=== PATIENT | female | born 1965 | race Caucasian/White ===

== ENCOUNTER → 2025-01-31 06:50 | Outpatient (REF) | payer BC, SELFPAY | LOC: HWWDC 06:50 | PROVIDERS: ATTENDING PHYSICIAN Nurse Practitioner Adult Health | DX: Z12.31 Encounter for screening mammogram for malignant neoplasm of breast (principal); E01.0 Iodine-deficiency related diffuse (endemic) goiter | CPT/HCPCS: 76536; 77063; 77067 ==

== ENCOUNTER 2025-07-10 19:49 | Emergency (ER) | payer BC, SELFPAY ==
[2025-07-10 20:00] VITALS: BP 131/91
--- NOTE | 2025-07-10 22:08 | ED.GENMED ---
History of Present Illness
General
Chief Complaint: Musculo-Skeletal Complaint
Source: patient
Exam Limitations: none
Time Seen by Provider: 07/10/25 21:57
History of Present Illness
History of Present Illness:
See MDM
Past History
Past History
ED Past Medical History: Other (diverticulitis)
ED Past Surgical History: None
Social History
Tobacco: Non-smoker
Personal:
Living: with family
Phy Exam
Physical Exam
Physical Exam:
See MDM
Course
Orders/Labs/Results
Orders:
Orders
07/10/25 20:05
Periph Venous Lwr Ext Left US [US Periph Venous LOWER Ext LT] Urgent
Comment:
Reason For Exam: left thigh pain
07/10/25 22:07
Knee Immobilizer Left-Treatmen ONCE
0.9% Sodium Chloride 1000 ml [Nss] 1,000 ml IV BOLUS
Morphine Sulfate 4 mg IV NOW STA
07/10/25 22:29
CPK [Creatine Phosphokinase] Urgent
Complete Blood Count/With Diff Urgent
Comprehensive Metabolic Panel Urgent
07/10/25 23:03
Oxycodone/Acetaminophen [Percocet 5/325] 1 tablet PO NOW STA
Abnormal Lab Results
07/10/25
22:29
RBC 4.15 L 10^6/uL
(4.20-5.40)
Hct 36.6 L %
(37.0-47.0)
Absolute Monos (auto) 0.8 H 10^3/uL
(0.1-0.6)
Lymphocytes % 18.1 L %
(20.5-51.1)
Monocytes % 9.4 H %
(1.7-9.3)
07/10/25 22:29
Vital Signs
Initial and Last Documented VS:
Initial Vital Signs
Temp Pulse Resp BP Pulse Ox
98.5 F 95 16 131/91 97
07/10/25 20:00 07/10/25 20:00 07/10/25 20:00 07/10/25 20:00 07/10/25 20:00
Last Documented Vital Signs
Temp Pulse Resp BP Pulse Ox
98.5 F 95 16 131/91 97
07/10/25 20:00 07/10/25 20:00 07/10/25 20:00 07/10/25 20:00 07/10/25 22:12
MDM/Problems Addressed
Differential Diagnosis Includes:
Note:
CHIEF COMPLAINT(S)
Severe pain in the thigh with an inability to bend the leg.
HISTORY OF PRESENT ILLNESS
The patient is a 60-year-old female who reports severe pain localized to her thigh, which started after a period of walking on [place] [address] over the past couple of weeks. She describes that the pain initially presented as a tightness and
progressed to a severe level over two nights ago, rendering her 'paralyzed with great pain.' The patient is unable to lift her leg due to the pain, making it very difficult for her to lie down or get into bed. The pain does not primarily affect her
hip but is described intensively in the lateral thigh area.
The patient attempted to seek care at urgent care, where it was suggested that the issue might involve the muscles, though she cannot recall the exact term used. She also expresses difficulty in putting weight on the affected leg due to pain but
notes she can stand. She rates the pain as 10 out of 10 and mentions that she has been sedentary for the last couple of days due to travel. The patient reports the pain is concentrated in the thigh and does not radiate past the knee, ruling out
typical sciatic pain.
The plan includes ruling out other conditions such as muscle breakdown (rhabdomyolysis) via blood work. Based on the examination, there is a suspicion of iliotibial (IT) band syndrome. Currently, she manages the intense pain with significant
discomfort, hampering her daily activities, including getting into a car or bed. Symptoms are worse when her left thigh is adducted
Pain is localized along the IT band
Although patient states she is unable to bend her leg, she is sitting in wheelchair with a bent leg
ADDITIONAL HISTORY OBTAINED FROM SOURCES OTHER THAN THE PATIENT
The patient was evaluated at urgent care, where staff mentioned a possible muscular problem.
SOCIAL DETERMINANTS AFFECTING HEALTH
The patient has been traveling abroad, which affected her physical activity levels and involved prolonged periods of immobility, contributing to her current condition.
ALLERGIES
The patient is allergic to penicillin.
PHYSICAL EXAM
General: Alert, no acute distress.
Skin: Warm, dry.
Head: Normocephalic, atraumatic
Neck: Appears supple, trachea midline.
Eyes, Ears, Nose, Mouth, and Throat: Moist mucous membranes
Cardiovascular: No signs of cyanosis
Respiratory: Respirations are non-labored.
Abdomen: Non-distended
Musculoskeletal: No deformities. Distal leg neurovasc intact. Pain localized along palpation of left IT band. Pain with left leg adduction
Neurological: No focal neurological deficit observed.
Psychiatric: Cooperative, appropriate mood and affect.
PLAN
- Administer an intravenous dose of morphine to help manage severe pain.
- Prescribe pain medication for outpatient management.
- Conduct blood tests to exclude rhabdomyolysis.
- Consider fitting a knee immobilizer to help ease movement restrictions and provide support.
- Recommend follow-up with an orthopedist or physical therapist for additional evaluation and management of suspected IT band syndrome.
- Advise rest and avoidance of activities that exacerbate symptoms.
DIFFERENTIAL DIAGNOSIS
The Differential Diagnosis includes, in no particular order and is not limited to:
1. Iliotibial Band Syndrome
2. Muscle Strain
3. Rhabdomyolysis
4. Deep Vein Thrombosis
5. Trochanteric Bursitis
6. Sciatica
7. Hip Osteoarthritis
8. Femoral Nerve Entrapment
9. Lumbar Radiculopathy
10. Bakers Cyst
SUMMARY OF ENCOUNTER
The patient, a 60-year-old female, presented with severe thigh pain after walking on cobblestones. Pain management was a primary focus given the extent of discomfort reported. Suspected iliotibial band syndrome, as suggested by prior examination,
led to consideration of this diagnosis. Blood work was done to rule out rhabdomyolysis, but no significant abnormalities were found. The patients pain management was improved, and her comfort level assessed positively before discharge.
DISPOSITION
Discharge
ASSESSMENT
Severe thigh pain likely due to iliotibial band syndrome, with no evidence of rhabdomyolysis.
EMERGENCY TREATMENTS ADMINISTERED
Administered intravenous morphine for severe pain management.
PLAN
- Prescribe pain medication for outpatient management.
- Fitting a knee immobilizer as needed.
- Follow-up with an orthopedist or physical therapist.
- Advisement on rest and avoidance of exacerbating activities.
PATIENT EDUCATION AND COUNSELING
Discussed the use of prescribed pain medication, stretching exercises, and importance of following up with a physical therapist. Advised follow-up with an orthopedist if symptoms persist or worsen.
FOLLOW-UP INSTRUCTIONS
Please follow-up with an orthopedist and physical therapy as recommended.
MEDICATION RECONCILIATION
Morphine was administered for pain relief during the visit. Prescription for pain management provided upon discharge.
MEDICAL DECISION MAKING
-Complexity of Data Reviewed: Chronic conditions affecting care including travel-induced sedentary behavior potentially contributing to iliotibial band syndrome. Differential diagnosis included: Iliotibial Band Syndrome, Muscle Strain, and others as
outlined.
-Data:
Category 1
Blood work reviewed with no significant abnormal findings, ruling out rhabdomyolysis.
Category 2
Clinical information obtained from the urgent care notes about the initial muscular problem suspicion.
-Risk:
Prescription medication was prescribed for pain management.
DIAGNOSIS
Iliotibial Band Syndrome (M76.3).
*Pulse Oximetry
SaO2: 97
Oxygen Mode of Delivery: Room air
Patient hypoxic: no
*Critical Care Note
Total Time (30-74mins, 75-104mins- exclusive of procedures): Not Applicable
ED Attending Note
-
Portions of this chart may have been created with voice recognition software.� Occasional wrong word or��sound alike� substitutions may have occurred due to the inherent limitations of voice recognition software.
Discharge Plan
Departure
Patient with high blood pressure during this ER visit?: No
Discharge Problem:
Iliotibial band syndrome
Instructions: Iliotibial Band Syndrome (DC)
Prescriptions:
New
oxycodone 5 mg tablet
5 mg PO Q8H PRN (Reason: Pain) Qty: 14 0RF
No Action
levofloxacin [Levaquin] 500 MG tablet
500 mg PO DAILY Qty: 7 0RF
metronidazole 500 MG tablet
500 mg PO TID Qty: 20 0RF
prednisone 10 MG tablet
10 mg PO .TAPER Qty: 30 0RF
Rx Instructions:
Take 40mg daily x3days, 30mg daily x3days,
20mg daily x3days, 10mg daily x3days.
hydrocodone-acetaminophen 1 TABLET tablet
1 tab PO Q4HPRN PRN (Reason: pain) Qty: 12 0RF
Referrals:
NONE,* [Family Provider, Internal Medicine]
Scotty Mae MD [Active, Orthopedics]
Activity Restrictions/Additional Instructions:
Please return for any worsening symptoms.
You may return at any time if you have further concerns.
Please follow up with your doctor at the first available appointment, preferably this week. Please discuss your symptoms and starting physical therapy.
Please make an appointment to see the orthopedist.
Thank you for choosing [facility].
Interventions
Interventions:
*Risk Screen - Suicide Last Done: 07/10/25 20:00
*General Assessment Last Done: 07/10/25 21:35
*Neglect/Abuse Screening Last Done: 07/10/25 20:00
ED-Musculoskeletal Assessment Last Done: 07/10/25 21:35
Discharge Date and Time
Print Language: SUDANESE
[2025-07-10] MEDS: NSS 1000 IV (22:31)
[2025-07-10] MEDS: MORPHINE SULFATE 4 MG IV (22:31)
[2025-07-10 22:50] LABS: Hematocrit 36.6 % (37.0-47.0); Hemoglobin 12.2 g/dL (12.0-16.0); Mean Corp Hgb Conc. 33.3 g/dL (33.0-37.0); Mean Corpuscular Volume 88.2 fL (81.0-99.0); Nucleated Red Blood Cells % 0 %; Platelet Count 212 10^3/uL (130-400); Red Cell Dist. Width 12.7 % (11.5-14.5)
[2025-07-10 23:03] LABS: ALT (SGPT) 20 U/L (0-35); AST (SGOT) 21 U/L (14-36); Albumin 4.7 g/dl (3.5-5.0); Alkaline Phosphatase 47 U/L (38-126); Blood Urea Nitrogen 5 mg/dl (7-17); Calcium 9.7 mg/dl (8.4-10.2); Carbon Dioxide 28 mmol/L (22-30); Chloride 102 mmol/L (98-107); Glucose 132 mg/dl (70-99); Potassium 3.7 mmol/L (3.5-5.1); Sodium 135 mmol/L (135-145); Total Protein 7.5 g/dl (6.3-8.2); eGFR > 60.00
[2025-07-10] MEDS: PERCOCET 5/325 1 TABLET PO (23:43)
== END 2025-07-11 00:11 | disposition home or self-care (01) ==
LOC: EMR 19:49
PROVIDERS: EMERGENCY PHYSICIAN Student in an Organized Health Care Education/Training Program
DX: M76.32 Iliotibial band syndrome, left leg (principal); M79.652 Pain in left thigh; Z88.0 Allergy status to penicillin
CPT/HCPCS: 99284; 96374; 96361; 80053; 82550; 85025; 93971

== ENCOUNTER 2025-09-24 22:23 | Emergency (ER) | payer BC, SELFPAY ==
[2025-09-24 22:30] VITALS: BP 142/96
[2025-09-24 23:35] VITALS: BMI 27.3
--- NOTE | 2025-09-24 23:35 | ED.SKININJ ---
HPI-Injury
General
Chief Complaint: Bite
Source: patient
Exam Limitations: none
Time Seen by Provider: 09/24/25 23:16
History of Present Illness-Injury
Initial Injury comments:
60yo [id number] female with no significant past medical history presenting for evaluation after cat bite about 1 hour ago. Patient feeds feral cats and one of the cats got into her home today. She tried to pull the cat's tail to get it
out of the house and the cat bit her in her right wrist. She cleaned the area immediately. No paresthesias. Unknown last Tdap.
Past History
Past History
ED Past Medical History: Other (diverticulitis)
ED Past Surgical History: None
Social History
Tobacco: Non-smoker
Personal:
Living: with family
Phy Exam
General Physical Exam
General Presentation: well appearing and no apparent distress
General age: appears stated age
General Skin: warm and dry
General Habitus: normal
General Mental: alert
ENT Exam
ENT Exam: normocephalic
Pulmonary Exam
Pulmonary Exam: no respiratory distress
Neurological Exam
Neurological Exam: alert
[place] Coma Scale
Eye Opening: Spontaneous
Verbal Response: Oriented
Motor Response: Obeys Commands
GCS Total Score: 15
Musculoskeletal Exam
Musculoskeletal Exam: other (R wrist: Two minor laceration noted to the radial aspect of the wrist with a puncture wound. No active bleeding. No bony tenderness and ROM of wrist intact. 2+ radial pulse.)
Skin Exam
Skin Exam: warm/dry
Psychiatric Exam
Psychiatric Exam: normal mood/affect
Course
Orders/Labs/Results
Orders:
Orders
09/24/25 23:34
Rabies Vaccine (Pcec)/Pf [Rabavert Rabies Vacc W-Diluent] 2.5 unit IM .ONCE ONE
Tetanus/Diphth/Acelpertussis [Adacel] 0.5 ml IM .ONCE ONE
09/25/25 00:00
Doxycycline [Vibramycin] 100 mg PO NOW STA
MetroNIDAZOLE [Flagyl] 500 mg PO NOW STA
09/25/25 00:47
Rabies Immune Globulin/Pf [HyperRAB] 1,440 unit IM NOW STA
09/25/25 01:30
Rabies Vaccine (Pcec)/Pf [Rabavert Rabies Vacc W-Diluent] 2.5 unit IM .ONCE ONE
Vital Signs
Initial and Last Documented VS:
Initial Vital Signs
Temp Pulse Resp Pulse Ox
97.9 F 83 20 98
09/24/25 22:25 09/24/25 22:25 09/24/25 22:25 09/24/25 22:25
Last Documented Vital Signs
Temp Pulse Resp BP Pulse Ox
97.9 F 80 18 135/90 97
09/24/25 22:25 09/25/25 01:32 09/25/25 01:32 09/25/25 01:32 09/25/25 01:32
MDM/Problems Addressed
Differential Diagnosis Includes:
60yoF here after being bitten by a feral cat in the R wrist. Minor lacerations and a puncture wound on exam. No indication for laceration repair. ROM intact and there is no bony tenderness. Patient initiated on a course of doxycycline and Flagyl for
infection prophylaxis (hx of PCN allergy). Tdap updated. Will initiate rabies vaccine series and cat is unable to be observed reliably. Rabies immunoglobulin injected into wounds and remainder given IM by nursing staff as well as rabies vaccination.
She was given a prescription for the remaining rabies vaccines and was advised to call the infusion center to scheduled this. Advised return to the ER with any signs of infection.
*Pulse Oximetry
SaO2: 98
Oxygen Mode of Delivery: Room air
Patient hypoxic: no
*Critical Care Note
Total Time (30-74mins, 75-104mins- exclusive of procedures): Not Applicable
ED Attending Note
-
Portions of this chart may have been created with voice recognition software.� Occasional wrong word or��sound alike� substitutions may have occurred due to the inherent limitations of voice recognition software.
Discharge Plan
Departure
Patient Disposition: Home (Routine Discharge)
Date of Disposition: 09/25/25
Time of Disposition: 01:28
Patient with high blood pressure during this ER visit?: Yes
Discharge Problem:
Cat bite of right wrist
Instructions: Animal Bites (DC)
Prescriptions:
New
doxycycline hyclate 100 mg capsule
100 mg PO BID Qty: 13 0RF
metronidazole 500 mg tablet
500 mg PO Q8H 7 Days Qty: 20 0RF
rabies vacc,human diploid (PF) 2.5 unit recon soln
2.5 unit IM ONCE Qty: 3 0RF
Rx Instructions:
Administer IM on 09/27/25, 10/01/25, and 10/08/24.
No Action
levofloxacin [Levaquin] 500 MG tablet
500 mg PO DAILY Qty: 7 0RF
metronidazole 500 MG tablet
500 mg PO TID Qty: 20 0RF
prednisone 10 MG tablet
10 mg PO .TAPER Qty: 30 0RF
Rx Instructions:
Take 40mg daily x3days, 30mg daily x3days,
20mg daily x3days, 10mg daily x3days.
hydrocodone-acetaminophen 1 TABLET tablet
1 tab PO Q4HPRN PRN (Reason: pain) Qty: 12 0RF
oxycodone 5 mg tablet
5 mg PO Q8H PRN (Reason: Pain) Qty: 14 0RF
Referrals:
NONE,* [Family Provider, Internal Medicine]
Stand Alone Forms: Rabies Vaccine Post Exp Dosing
Activity Restrictions/Additional Instructions:
Take antibiotics as prescribed. Please call the infusion center to schedule the remainder of your rabies vaccinations.
Please follow-up with your family doctor. Return to the ER with any worsening symptoms including red streaking, drainage, or fevers.
Interventions
Interventions:
*General Assessment Last Done: 09/24/25 22:25
*Neglect/Abuse Screening Last Done: 09/24/25 22:25
*ED COVID-19 Vaccine History Last Done: 09/24/25 23:35
*ED Influenza Vaccine History Last Done: 09/24/25 23:35
[facility] Fall Risk Assessment Tool Last Done: 09/24/25 23:35
*Risk Screen - Suicide (C-SSRS) Last Done: 09/24/25 22:25
*Nursing Disposition Last Done: 09/25/25 01:33
ED-Skin Assessment Last Done: 09/24/25 23:35
Discharge Date and Time
Discharge Date/Time: 09/25/25 01:33
Print Language: BULGARIAN
[2025-09-24] MEDS: ADACEL 0.5 ML IM (23:40)
[2025-09-25] MEDS: FLAGYL 500 MG PO (00:10)
[2025-09-25] MEDS: VIBRAMYCIN 100 MG PO (00:10)
[2025-09-25] MEDS: RABAVERT RABIES VACC W-DILUENT 2.5 UNIT IM (01:26)
[2025-09-25 01:32] VITALS: BP 135/90
== END 2025-09-25 01:33 | disposition home or self-care (01) ==
LOC: EMR 22:23
PROVIDERS: EMERGENCY PHYSICIAN Emergency Medicine
DX: S61.551A Open bite of right wrist, initial encounter (principal); W55.01XA Bitten by cat, initial encounter; Y92.009 Unspecified place in unspecified non-institutional (private) residence as the place of occurrence of the external cause; R03.0 Elevated blood-pressure reading, without diagnosis of hypertension; Z20.3 Contact with and (suspected) exposure to rabies; Z23 Encounter for immunization; Z29.14 Encounter for prophylactic rabies immune globulin
CPT/HCPCS: 99282; 90471; 96372; 90375; 90675; 90715

== ENCOUNTER 2025-09-26 21:10 | Observation (INO) | payer BC, SELFPAY ==
[2025-09-26 18:16] VITALS: BP 142/99
--- NOTE | 2025-09-26 19:59 | ED.GENMED ---
History of Present Illness
General
Chief Complaint: Skin Problem
Time Seen by Provider: 09/26/25 19:47
Nursing documentation reviewed up to this point in time: agreed with
History of Present Illness
History of Present Illness:
60-year-old female presents the ER for reevaluation of cat bite. Patient was bitten on the . She was seen here and initiated on doxycycline and Flagyl which she has been taking but noted worsening redness and swelling to her hand. Patient has
limited active range of motion of the right thumb due to pain and swelling. She denies fevers. She has not been taking any [id number] pain relievers for her discomforts.
Past History
Past History
ED Past Medical History: Other (diverticulitis)
ED Past Surgical History: None
Social History
Tobacco: Non-smoker
Personal:
Living: with family
Review of Systems
Review of Systems
Allergies reviewed?: Yes
Phy Exam
Physical Exam
Physical Exam:
Patient is awake, alert, appears in no acute distress, head is NCAT, PERRL, EOMI mucous membranes moist, conjunctiva pink, heart regular rate and rhythm without murmurs or ectopy, lungs are clear to auscultation without wheezes rales or rhonchi, no
JVD, right hand examination reveals significant swelling in the interdigital space between digits 1 and 2 with an overlying puncture wound in this area, there are 2 additional areas of injury on the thenar eminence, there is significant swelling and
increased warmth in comparison to the remainder of the hand, patient with limited active range of motion of the thumb, there is a lymphangitic streak up to the medial forearm to mid forearm, brisk cap refill present to the digits of the right hand,
GCS is 15
Course
Orders/Labs/Results
Orders:
Orders
09/26/25 19:56
CefTRIAXone [Rocephin] 1,000 mg IV NOW STA
MetroNIDAZOLE 500 MG/100 ML [Flagyl 500 mg] 100 ml IV NOW
09/26/25 20:00
Ketorolac [Toradol] 15 mg IV NOW STA
09/26/25 20:30
Blood Culture Q30M
GER Source: Blood/Venous
Specimen Description:
09/26/25 20:31
Complete Blood Count/With Diff Urgent
Blood Culture Q30M
GER Source: Blood/Venous
Specimen Description:
09/26/25 20:47
Basic Metabolic Panel Urgent
Abnormal Lab Results
09/26/25
20:31
Absolute Monos (auto) 0.9 H 10^3/uL
(0.1-0.6)
Monocytes % 15.1 H %
(1.7-9.3)
09/26/25 20:31
CBC wnl
Vital Signs
Initial and Last Documented VS:
Initial Vital Signs
Temp Pulse Resp BP Pulse Ox
98.0 F 84 18 142/99 97
09/26/25 18:16 09/26/25 18:16 09/26/25 18:16 09/26/25 18:16 09/26/25 18:16
Last Documented Vital Signs
Temp Pulse Resp BP Pulse Ox
98.0 F 84 18 142/99 97
09/26/25 18:16 09/26/25 18:16 09/26/25 18:16 09/26/25 18:16 09/26/25 20:00
MDM/Problems Addressed
Differential Diagnosis Includes:
Differential diagnosis to consider but not limited to deep space infection, failed outpatient treatment of cat bite along with other etiologies considered
*Pulse Oximetry
SaO2: 97
Oxygen Mode of Delivery: Room air
Patient hypoxic: no
*Critical Care Note
Total Time (30-74mins, 75-104mins- exclusive of procedures): Not Applicable
Update Note
Update Note:
Patient appears nontoxic but given worsening swelling and pain, I discussed with patient need for IV antibiotics and observation in the hospital. She agrees with plan. I assisted with removal of 2 tight rings on her fourth digit of the right hand
which were given to her significant other present at bedside. They agree with plan for admission. IV antibiotics, blood cultures, Toradol ordered. Will discuss with hospitalist.
2054: CBC reassuring. I reviewed pt presentation with the hospitalist who accepts pt for admission for further tx of failed outpt treatment of cellulitis related to cat bite
ED Attending Note
-
Portions of this chart may have been created with voice recognition software.� Occasional wrong word or��sound alike� substitutions may have occurred due to the inherent limitations of voice recognition software.
Discharge Plan
Departure
Patient Disposition: Admit
Date of Disposition: 09/26/25
Time of Disposition: 20:56
Presentation/result/management discussed w/ accepting MD/DO: Hospitalist
Discharge Problem:
Cat bite of right hand, Cellulitis
Prescriptions:
No Action
levofloxacin [Levaquin] 500 MG tablet
500 mg PO DAILY Qty: 7 0RF
metronidazole 500 MG tablet
500 mg PO TID Qty: 20 0RF
prednisone 10 MG tablet
10 mg PO .TAPER Qty: 30 0RF
Rx Instructions:
Take 40mg daily x3days, 30mg daily x3days,
20mg daily x3days, 10mg daily x3days.
hydrocodone-acetaminophen 1 TABLET tablet
1 tab PO Q4HPRN PRN (Reason: pain) Qty: 12 0RF
oxycodone 5 mg tablet
5 mg PO Q8H PRN (Reason: Pain) Qty: 14 0RF
doxycycline hyclate 100 mg capsule
100 mg PO BID Qty: 13 0RF
metronidazole 500 mg tablet
500 mg PO Q8H 7 Days Qty: 20 0RF
rabies vacc,human diploid (PF) 2.5 unit recon soln
2.5 unit IM ONCE Qty: 3 0RF
Rx Instructions:
Administer IM on 09/27/25, 10/01/25, and 10/08/24.
Referrals:
UNKNOWN - PT DOES,NOT KNOW [Unknown Provider]
Interventions
Interventions:
*Risk Screen - Suicide (C-SSRS) Last Done: 09/26/25 18:16
Discharge Date and Time
Print Language: BELARUSIAN
[2025-09-26 20:30] VITALS: BP 127/90
[2025-09-26] MEDS: TORADOL 15 MG IV (20:38)
[2025-09-26] MEDS: ROCEPHIN 1000 MG IV (20:38)
[2025-09-26 20:40] LABS: Hematocrit 40.0 % (37.0-47.0); Hemoglobin 13.6 g/dL (12.0-16.0); Mean Corp Hgb Conc. 34.0 g/dL (33.0-37.0); Mean Corpuscular Volume 87.0 fL (81.0-99.0); Nucleated Red Blood Cells % 0 %; Platelet Count 252 10^3/uL (130-400); Red Cell Dist. Width 13.6 % (11.5-14.5)
[2025-09-26] MEDS: FLAGYL 500 MG 100 IV (20:48)
--- NOTE | 2025-09-26 21:08 | HPS.HSE ---
Family Physician
-
Family Physician: * NONE
Chief Complaint
-
right hand cat bite
History of Present Illness
60-year-old female NO PMH presenting for cat bite. She was bitten on her right hand 2 days ago by a feral cat that she was feeding. She was seen here and started on doxycycline and Flagyl with worsening symptoms. She has limited range of motion
of the right thumb due to pain and swelling. No fevers or chills.
She drinks alcohol occasionally. Denies smoking.
Medical History
Past Medical History
Past Medical History: Reports None
Past Surgical History: Reports None
Social History
Tobacco: Non-smoker
Alcohol: Occasional
Drug: None
Family History
Family History: Not pertinent
Allergies / Home Medications
Allergies reflects when Allergies were last updated in Drive.
Home Medications with original date entered in Drive
Allergy/Medication List:
Allergies
Allergy/AdvReac Type Severity Reaction Status Date / Time
Penicillins Allergy Unknown Verified 09/26/25 18:16
Home Medications
levofloxacin 500 mg tablet (Levaquin) 500 mg PO DAILY #7 tabs 06/08/15
metronidazole 500 mg tablet 500 mg PO TID #20 tabs 06/08/15
hydrocodone 5 mg-acetaminophen 325 mg tablet 1 tab PO Q4HPRN PRN pain #12 tabs 09/21/21
prednisone 10 mg tablet 10 mg PO .TAPER #30 tabs 09/21/21
oxycodone 5 mg tablet 5 mg PO Q8H PRN Pain #14 tabs 07/10/25
doxycycline hyclate 100 mg capsule 100 mg PO BID #13 caps 09/25/25
metronidazole 500 mg tablet 500 mg PO Q8H 7 days #20 tabs 09/25/25
rabies vacc,human diploid (PF) 2.5 unit intramuscular solution 2.5 unit IM ONCE #3 ea 09/25/25
Review of Systems
-
History Source: Patient
A 12 point ROS was completed and negative except as noted: Yes
Constitutional: Reports No Symptoms
EENT: Reports No Symptoms
Respiratory: Reports No Symptoms
Cardiac: Reports No Symptoms
Abdomen/GI: Reports No Symptoms
: Reports No Symptoms
Musculoskeletal: Reports No Symptoms
Skin: Reports No Symptoms
Neurological: Reports No Symptoms
Endocrine: Reports No Symptoms
Hematologic/Lymphatic: Reports No Symptoms
Psych: Reports No Symptoms
Physical Exam
Vital Signs
Vital Signs
Temp Pulse Resp BP Pulse Ox
98.0 F 84 18 142/99 97
09/26/25 18:16 09/26/25 18:16 09/26/25 18:16 09/26/25 18:16 09/26/25 20:00
Physical Exam
General: Well Developed, Well Nourished and No Apparent Distress
HEENT: NormoCephalic, Moist mucous membranes and Atraumatic
Respiratory: Clear
Cardiac: S1/S2 and Regular Rhythm; No Murmur or Rub
GI: Soft, Non Tender, Non Distended and Normal Bowel Sounds; No Organomegaly
Rectal: Deferred by Provider
Musculoskeletal: No Clubbing, No Cyanosis and No Edema
Skin: No Rash
Neuro: Nonfocal/grossly intact
Laboratory Results
-
09/26/25 20:31
Data Reviewed
-
Lab Data: Labs Reviewed by me
Old Records: Reviewed
Impression/Plan
-
IMPRESSION:
PLAN:
# Right hand cat bite cellulitis
-Received Tdap and rabies immunoglobulin/vaccine 2 days ago
- Blood cultures pending
-Check hand x-ray
- Ceftriaxone/Flagyl
- Toradol
Full code
DVT prophylaxis�Lovenox
Regular diet
[2025-09-26 21:32] LABS: Blood Urea Nitrogen 13 mg/dl (7-17); Calcium 9.7 mg/dl (8.4-10.2); Carbon Dioxide 24 mmol/L (22-30); Chloride 104 mmol/L (98-107); Glucose 93 mg/dl (70-99); Potassium 4.3 mmol/L (3.5-5.1); Sodium 136 mmol/L (135-145); eGFR > 60.00
[2025-09-26 22:54] VITALS: BP 138/99; BMI 26.7
--- NOTE | 2025-09-26 23:48 | PTCARENOTE ---
Receive pt from ER. Pt alert oriented X3, calm, in no distress. Pt with no assist to bed. Pt oriented to the room, call [facility] within reach. Pt states that the pain in her right hand improved with Toradol. The pain is 5/10. VSS (T=98, HR=82, RR=18,
KT=884/99, SpO2=96% on RA). Will continue to monitor the pt.
[2025-09-27] MEDS: FLAGYL 500 MG 100 IV ×3 (03:02→20:15)
[2025-09-27 07:05] VITALS: BP 128/71
[2025-09-27] MEDS: TORADOL 10 MG IV ×2 (08:15→18:38)
[2025-09-27 09:22] LABS: Hematocrit 38.6 % (37.0-47.0); Hemoglobin 12.9 g/dL (12.0-16.0); Mean Corp Hgb Conc. 33.4 g/dL (33.0-37.0); Mean Corpuscular Volume 89.8 fL (81.0-99.0); Nucleated Red Blood Cells % 0 %; Platelet Count 232 10^3/uL (130-400); Red Cell Dist. Width 13.5 % (11.5-14.5)
[2025-09-27 09:37] LABS: ALT (SGPT) 20 U/L (0-35); AST (SGOT) 24 U/L (14-36); Albumin 4.1 g/dl (3.5-5.0); Alkaline Phosphatase 44 U/L (38-126); Blood Urea Nitrogen 10 mg/dl (7-17); Calcium 9.7 mg/dl (8.4-10.2); Carbon Dioxide 26 mmol/L (22-30); Chloride 105 mmol/L (98-107); Estimated Creatinine Clearance 88 ml/min; Glucose 86 mg/dl (70-99); Potassium 4.4 mmol/L (3.5-5.1); Sodium 136 mmol/L (135-145); Total Protein 6.7 g/dl (6.3-8.2); eGFR > 60.00
--- NOTE | 2025-09-27 14:22 | CM ---
Patient seen at bedside
IA completed
Lives with spouse 2 story home, 2 steps to enter, flight to bed/bath
PLOF: Independent
Denies DME
Denies VN/rehab
pcp: Dr. Zurita
Pharmacy: [facility], [address]
plan: home, no needs anticipated when stable
--- NOTE | 2025-09-27 14:28 | W.PN.HOSP.TC ---
Today's Communication/Plan
-
Cat bite, right hand cellulitis
ctx and flagyl
cxs
s/p rabies vac on 09/24
2nd dose rabies ordered for today
s/p tdap
hand xray without osseous involvement
ortho consult
Assessment / Plan
Assessment / Plan
Anticipated Discharge: 24 - 48 hours
Subjective/Interval History
-
Date of Service: September 27, 2025
Seen and examined. No new complaints. No acute overnight events.
Objective Data
-
Labs:
Laboratory Results
09/27/25
08:01
WBC 4.2 L
Hgb 12.9
Hct 38.6
Plt Count 232
Sodium 136
Potassium 4.4
Chloride 105
Carbon Dioxide 26
BUN 10
Creatinine 0.6
Glucose 86
Calcium 9.7
Total Bilirubin 0.6
AST 24
ALT 20
Alkaline Phosphatase 44
Vital Signs:
Vital Signs
Temp Pulse Resp BP Pulse Ox
97.9 F 69 18 128/71 97
09/27/25 07:05 09/27/25 07:05 09/27/25 07:05 09/27/25 07:05 09/27/25 08:10
I&O
09/26/25 09/27/25 09/28/25
06:59 06:59 06:59
Intake Total 580 / 580
Balance 580 / 580
Physical Exam
-
General: Well Developed, Well Nourished, No Apparent Distress and Comfortable
HEENT: Normocephalic and Atraumatic
Respiratory: Clear to Auscultation
Cardiac: Regular Rhythm and S1/S2
GI: Soft, Nontender and Nondistended
Musculoskeletal: No Clubbing, No Cyanosis, No Edema and Other (right hand with three puncture proctor, difficulty making a fist, difficulty thumb to index, erythema, no purulence, swelling)
Neuro: Awake and AO x 3
Psych: Calm
[2025-09-27 15:25] VITALS: BP 125/78
[2025-09-27] MEDS: RABAVERT RABIES VACC W-DILUENT 2.5 UNIT IM (15:36)
[2025-09-27] MEDS: LOVENOX 40 MG SC (17:20)
[2025-09-27] MEDS: ROCEPHIN 1000 MG IV (20:16)
[2025-09-27 23:34] VITALS: BP 127/86
[2025-09-27 23:36] LABS: C-Reactive Protein 22.20 mg/L (0.0-10.00)
[2025-09-28] MEDS: FLAGYL 500 MG 100 IV ×3 (04:08→20:38)
[2025-09-28 07:14] VITALS: BP 129/86
--- NOTE | 2025-09-28 12:34 | CON.ORTHO ---
Consultation
-
Date/Time Consultation Performed: 09/28/2025 12 pm
Consultation - Orthopedics
History
HPI: 60-year-old female presented to the emergency department complaints of right hand pain swelling redness. As she been previously bitten by a cat. She failed outpatient oral antibiotics had worsening symptoms and was ultimately admitted to the
medical service. Orthopedics was consulted for further evaluation and treatment. This morning patient reports quite substantial improvement in her symptoms. She reports that range of motion has improved substantially. She reports that redness
has improved substantially. She is really not complaining of significant pain this morning ports the pain is also improved quite a bit.
Allergies / Home Medications
Past medical history: None documented
Past surgical history: None documented
Social history: Non-smoker, lives with family
Family history: Not pertinent
Allergy/AdvReac Type Severity Reaction Status Date / Time
Penicillins Allergy Unknown Verified 09/26/25 18:16
�Medication �Instructions �Recorded
levofloxacin 500 mg tablet 500 mg PO DAILY #7 tabs 06/08/15
(Levaquin)
metronidazole 500 mg tablet 500 mg PO TID #20 tabs 06/08/15
hydrocodone 5 mg-acetaminophen 325 1 tab PO Q4HPRN PRN pain #12 tabs 09/21/21
mg tablet
prednisone 10 mg tablet 10 mg PO .TAPER #30 tabs 09/21/21
oxycodone 5 mg tablet 5 mg PO Q8H PRN Pain #14 tabs 07/10/25
doxycycline hyclate 100 mg capsule 100 mg PO BID #13 caps 09/25/25
metronidazole 500 mg tablet 500 mg PO Q8H 7 days #20 tabs 09/25/25
rabies vacc,human diploid (PF) 2.5 2.5 unit IM ONCE #3 ea 09/25/25
unit intramuscular solution
Vital Signs / Lab Results
Temp Pulse Resp BP Pulse Ox
97.6 F 62 18 129/86 96
09/28/25 07:14 09/28/25 07:14 09/28/25 07:14 09/28/25 07:14 09/28/25 07:14
09/27/25 08:01
09/27/25 08:01
10 point review systems reviewed and negative unless otherwise stated
General: Pleasant, no acute distress
Musculoskeletal right upper extremity
Skin intact, there is really no visible erythema today, no ecchymotic staining
Minimal swelling noted
Patient is able to form a composite fist this morning
There is 3 small areas of puncture wounds over the radial aspect of the dorsal wrist
There is no pain with active or passive range of motion of the radiocarpal joint
Tenodesis effect intact
Nontender palpation over the flexor tendon sheath thumb index finger, no palpable fluctuance in the first webspace
No fusiform swelling noted of digits
No pain with passive extension of fingers
Brisk cap refill
Diagnostic studies
X-rays of right hand taken during this hospitalization apparently viewed by myself. Radiology report reviewed. There is no evidence of radiopaque foreign body or fracture identified
Assessment / Plan
60-year-old female now several days out from a cat bite to her right hand/wrist with substantial improvement after IV antibiotics. I had a long detailed discussion with the patient as well as her at bedside regarding diagnosis and treatment
options. Certainly based on her exam clinically would not recommend any orthopedic intervention. Would recommend continued elevation immobilization antibiotics per primary team. She is already scheduled to undergo an MRI with and without contrast
today. Given that this is already ordered, would recommend proceeding for greater clarity as to the extent of her soft tissue involvement. There is no significant clinical concern for flexor tenosynovitis or large soft tissue collection that might
require surgical intervention. No clinical concern for septic arthritis. Based on clinical improvement, I do not think that she would sterilely require close orthopedic follow-up. Certainly if symptoms should worsen or persist, would recommend
outpatient follow-up with hand team. Please reach out with questions or concerns
--- NOTE | 2025-09-28 13:35 | W.PN.HOSP.TC ---
Today's Communication/Plan
-
Assessment / Plan
Assessment / Plan
General: Well Developed, Well Nourished, No Apparent Distress and Comfortable
HEENT: Normocephalic and Atraumatic
Respiratory: Clear to Auscultation
Cardiac: Regular Rhythm and S1/S2
GI: Soft, Nontender and Nondistended
Musculoskeletal: No Clubbing, No Cyanosis, No Edema and Other (right hand with three puncture proctor, difficulty making a fist, difficulty thumb to index, erythema, no purulence, swelling, no pain/tendnerss along tendons)
Neuro: Awake and AO x 3
Psych: Calm
Cat bite, right hand cellulitis
ctx and flagyl
cxs
s/p rabies vac on 09/24
2nd dose rabies ordered for today
s/p tdap
hand xray without osseous involvement
mri hand
ortho consult
Anticipated Discharge: 24 - 48 hours
Subjective/Interval History
-
Date of Service: September 28, 2025
Seen and examined. No new complaints. No acute overnight events.
States states that her arm is feeling better feels like it is more like her hand again.
Objective Data
-
Vital Signs:
Vital Signs
Temp Pulse Resp BP Pulse Ox
97.6 F 62 18 129/86 96
09/28/25 07:14 09/28/25 07:14 09/28/25 07:14 09/28/25 07:14 09/28/25 07:14
I&O
09/27/25 09/28/25 09/29/25
06:59 06:59 06:59
Intake Total 580 / 580 1400 / 1400
Balance 580 / 580 1400 / 1400
[2025-09-28 15:33] VITALS: BP 140/87
[2025-09-28] MEDS: LOVENOX SC (17:07)
[2025-09-28] MEDS: ROCEPHIN 1000 MG IV (20:19)
[2025-09-28] MEDS: STERILE WATER FOR INJECTION 10 ML IV (20:20)
[2025-09-28 23:12] VITALS: BP 123/88
[2025-09-29] MEDS: FLAGYL 500 MG 100 IV ×2 (03:37→12:55)
[2025-09-29 07:08] VITALS: BP 127/75
[2025-09-29] MEDS: FLAGYL 500 MG IV (11:37)
[2025-09-29] MEDS: AUGMENTIN 875 MG/125 MG 1 TABLET PO (14:05)
--- NOTE | 2025-09-29 15:06 | W.DCSUMMARY ---
Discharge Summary
Discharge Data
Date of Admission: 09/26/25
Date of Discharge: 09/29/25
-
Pending Results: No
Hospital Course
60 female no significant past medical history
Presented after being bitten by a cat that was feral. Initially presented to the ER in 09/25/2025. At that time received day 1 of rabies vaccine and discharged home with antibiotics. Return the following day for worsening redness swelling of the
hand. Started on IV antibiotics. Bone x-ray of the hand was negative for bony involvement. Orthopedics consulted. Recommended hand MRI which did not demonstrate bone involvement or tendon involvement. Blood cultures negative. Received day 3
rabies vaccine. Will need to continue to follow-up with the ER for day 7 and 14 rabies vaccine.
Should be noted has a penicillin allergy that was diagnosed at 7 years of age. Has not had penicillin since. She is agreeable to trialing Augmentin while inpatient. Evaluated for 1 hour post administration without hives/anaphylactic reaction.
Will discharge home with a 12-day supply of Augmentin to complete.
Bone Xray
IMPRESSION: No acute osseous abnormality.
MRI UE
IMPRESSION:
Cellulitis. No abscess. No evidence of osteomyelitis or occult fracture.
If symptoms return or worsen please return to the hospital
Seen and examined on the day of discharge which was 09/29/2025.
No new complaints. Acute overnight events
General: Well Developed, Well Nourished, No Apparent Distress and Comfortable
HEENT: Normocephalic and Atraumatic
Respiratory: Clear to Auscultation
Cardiac: Regular Rhythm and S1/S2
GI: Soft, Nontender and Nondistended
Musculoskeletal: No Clubbing, No Cyanosis, No Edema
- Right hand mobility improving able to make an okay sign able to touch her thumb to her middle finger, thumb to ring finger, thumb to little finger is difficult still. Still difficult to make her wrist. No pain over tendons/thenar area
Neuro: Awake and AO x 3
Psych: Calm
More than 30 minutes spent in discharge including
Final examination of the patient
Summarizing hospital stay
Instructions for continuing care to all relevant caregivers
Preparation of discharge records, prescriptions, and referral forms
Total time spent (in minutes): 33mins
Discharge Plan
-
Patient Disposition: Home (Routine Discharge)
Discharge Diagnosis/Procedures: Cat Bite
Condition: Good
Diet: As tolerated
Activity: As tolerated
Activity Restrictions/Additional Instructions:
Presented after being bitten by a cat that was feral. Initially presented to the ER in 09/25/2025. At that time received day 1 of rabies vaccine and discharged home with antibiotics. Return the following day for worsening redness swelling of the
hand. Started on IV antibiotics. Bone x-ray of the hand was negative for bony involvement. Orthopedics consulted. Recommended hand MRI which did not demonstrate bone involvement or tendon involvement. Blood cultures negative. Received day 3
rabies vaccine. Will need to continue to follow-up with the ER for day 7 and 14 rabies vaccine.
Should be noted has a penicillin allergy that was diagnosed at 7 years of age. Has not had penicillin since. Agreeable to trial Augmentin while inpatient. Evaluated for 1 hour post administration without hives/anaphylactic reaction. Will
discharge home with a 12-day supply of Augmentin to complete.
Bone Xray
IMPRESSION: No acute osseous abnormality.
MRI UE
IMPRESSION:
Cellulitis. No abscess. No evidence of osteomyelitis or occult fracture.
If symptoms return or worsen please return to the hospital
Referrals:
NONE,* [Family Provider, Internal Medicine]
Prescriptions:
New
amoxicillin-pot clavulanate 875-125 mg tablet
1 tab PO BID 12 Days Qty: 24 0RF
Continued
multivitamin Tablet
1 tab PO DAILY
cholecalciferol (vitamin D3) [Vitamin D3] 50 mcg (2,000 unit) Capsule
50 mcg PO DAILY
magnesium Tablet
1 tab PO
Discharge Date and Time
Print Language: MONGOLIAN
[2025-09-29 15:14] VITALS: BP 113/75
--- NOTE | 2025-09-29 15:24 | PTCARENOTE ---
Augmentin given to pt at 1405. No allergic reaction noted. Pt says she feels well. Vital signs stable. Dr Jagjit Cortes made aware.
== END 2025-09-29 17:01 | disposition home or self-care (01) ==
LOC: 4 EAST ACU 21:10
PROVIDERS: ADMITTING PHYSICIAN Hospitalist; ATTENDING PHYSICIAN Hospitalist; CONSULT PHYSICIAN Orthopaedic Surgery; EMERGENCY PHYSICIAN Emergency Medicine
PROC: 3E0234Z Introduction of Serum, Toxoid and Vaccine into Muscle, Percutaneous Approach (ICD-10-PCS; 2025-09-27)
DX: L03.113 Cellulitis of right upper limb (principal); S61.451A Open bite of right hand, initial encounter; W55.01XA Bitten by cat, initial encounter; Z88.0 Allergy status to penicillin; Z20.3 Contact with and (suspected) exposure to rabies; Z23 Encounter for immunization
CPT/HCPCS: 90471; 73120; 73223; 80048; 80053; 85025; 85652; 86140; 87040; 90675; 96365; 96375; 99284; A9575; G0378

== ENCOUNTER 2025-10-02 13:01 | Outpatient (RCR) | payer BC, SELFPAY ==
[2025-10-02 13:23] VITALS: BP 137/91
[2025-10-02] MEDS: RABAVERT RABIES VACC W-DILUENT 2.5 UNIT IM (13:37)
== END 2025-10-02 23:59 | disposition home or self-care (01) ==
LOC: OID 13:01
PROVIDERS: ATTENDING PHYSICIAN Emergency Medicine
DX: Z20.3 Contact with and (suspected) exposure to rabies (principal); Z23 Encounter for immunization
CPT/HCPCS: 90471; 90675